=== PATIENT | female | born 1960 | race Caucasian/White ===

== ENCOUNTER 2017-09-04 19:18 | Observation (INO) ==
--- NOTE | 2017-09-04 19:52 | Emergency Department Note ---
Disposition Clinical Impression: Near syncope Syncope Qualifiers: Encounter type: initial encounter Disposition: Admitted As Inpatient Condition: Good Forms: ED Satisfaction Letter Time of Disposition: 22:00 General Adult HPI - General Chief complaint: ED Syncope Stated complaint: syncopal episode, diaphoretic, tingling to fingers Time Seen by Provider: 09/04/17 19:33 Source: patient Limitations: no limitations Nursing Notes Reviewed: Yes Vital Signs Reviewed: Yes - History of Present Illness HPI Narrative: 56-year-old female with no significant past medical history presents today with presyncopal episode 1 hour ago. Patient was eating dinner with family when she suddenly experienced left hand first and second digit tightness and lightheadedness. She felt like she was going to faint. Denies loss of consciousness or trauma to head. Does admit to nausea without vomiting. Denies recent illness. Denies chest pain, shortness of breath. Her lightheadedness and dizziness has self resolved. Currently asymptomatic. Denies tingling and numbness. Denies dizziness, lightheadedness with changes in position. Reports that this has not happened before. Denies history of stroke, CAD, palpitations. Her mother had history of breast cancer. Does admit to carpal tunnel of right hand with tendon release in the past. Pt Subjective Complaint: lightheadedness. Pain Scale: 0 - Related Data Allergies Allergy/AdvReac Type Severity Reaction Status Date / Time No Known Allergies Allergy Verified 02/21/15 08:03 All systems ED: reviewed and negative except as stated. Review of Systems: As Per HPI Constitutional: Reports: as per HPI Cardiovascular: Reports: as per HPI Respiratory: Reports: as per HPI Gastrointestinal: Reports: as per HPI Genitourinary: Reports: as per HPI Musculoskeletal: Reports: as per HPI Integumentary: Reports: as per HPI Neurological: Reports: as per HPI Endocrine: Reports: as per HPI Past Medical History - Past Medical History Medical history: Reports: no medical history Psychiatric history: Reports: no psych history - Social History Smoking Status: Never smoker Alcohol use: Reports: none Drug use: Reports: none Physical Exam - General Limitations: no limitations General appearance: alert, in no apparent distress - Head Head exam: atraumatic, normocephalic, normal inspection - Eye Eye exam: Present: normal appearance, PERRL, EOMI - Expanded Eye Exam Pupils: Left: reactive - ENT ENT exam: normal exam, normal oropharynx, mucous membranes moist - Expanded ENT Exam External ear exam: Present: normal external inspection Mouth exam: Present: normal external inspection Teeth exam: Present: normal inspection Throat exam: Present: normal inspection - Neck Neck exam: Present: normal inspection, full ROM, trachea midline - Chest Chest inspection: Present: normal inspection, symmetric chest wall rise - Respiratory Respiratory exam: Present: normal lung sounds bilaterally - Cardiovascular Cardiovascular exam: Present: regular rate, normal rhythm, normal heart sounds - Abdominal Exam Abdominal exam: Present: soft, Non-Tender. Absent: tenderness, distention, guarding, rebound, rigidity - Extremities Exam Extremities exam: Present: normal inspection, full ROM. Absent: tenderness, pedal edema - Expanded Upper Extremity Exam Shoulder exam: Present: normal inspection, full ROM Arm exam: Present: normal inspection, full ROM Elbow exam: Present: normal inspection, full ROM Forearm/Wrist exam: Present: normal inspection, full ROM Hand exam: Present: normal inspection, full ROM Vascular exam: Normal: capillary refill, radial pulse - Expanded Lower Extremity Exam Hip/Pelvis exam: Present: normal inspection, full ROM Upper leg exam: Present: normal inspection, full ROM Knee exam: Present: normal inspection, full ROM Lower leg exam: Present: normal inspection, full ROM Ankle exam: Present: normal inspection, full ROM Foot/toe exam: Present: normal inspection, full ROM Neurovascular/Tendon exam: Absent: motor deficit, sensory deficit, tendon deficit - Back Exam Back exam: Present: normal inspection, full ROM. Absent: tenderness - Neurological Exam Neurological exam: Present: alert, oriented X3 - Expanded Neurological Exam Patient oriented to: Present: person, place, time Coma Scale Eye Opening: Spontaneous Coma Scale Motor Response: Obeys Commands Coma Scale Verbal Response: Oriented Coma Scale Total: 15 - Psychiatric Psychiatric exam: Present: normal affect, normal mood - Skin Skin exam: Present: warm, dry, intact, normal color Course Course Narrative: Blood work is unremarkable, EKG unremarkable. Patient has no previous history of syncope, CAD. She does not have previous history of palpitations but currently does experience them. We will admit her for syncope workup due to no previous history of cardiac or neurologic deficits. Patient is informed and is agreeable to management plan. Pending hospitalization admission. - Consultations Consultation #1: Consulted Dr. Brown, admitting hospitalist. She has accepted admission. Vital Signs Temperature 97.9 F 09/04/17 19:26 Pulse Rate 77 09/04/17 19:26 Respiratory Rate 16 09/04/17 19:26 Blood Pressure 149/84 09/04/17 19:26 O2 Sat by Pulse Oximetry 100 09/04/17 19:26 Temperature 97.9 F 09/04/17 19:26 Pulse Rate 77 09/04/17 19:26 Respiratory Rate 16 09/04/17 19:26 Blood Pressure 149/84 09/04/17 19:26 O2 Sat by Pulse Oximetry 100 09/04/17 19:26 Oxygen Delivery Oxygen Delivery Room Air Medical Decision Making - Medical Records Medical records reviewed: Yes I reviewed the patient's medical records. - Lab Data Lab results reviewed: Yes I reviewed the patient's lab results. Result diagrams: 09/04/17 20:12 09/04/17 20:12 Lab Results 09/04/17 09/04/17 09/04/17 Range/Units 19:22 20:12 20:12 WBC 8.6 (4.3-11.1) K/mcL RBC 4.19 (3.82-4.97) M/mcL Hgb 13.0 (11.5-15.4) g/dL Hct 38.4 (35.3-44.9) % MCV 91.6 (83.0-100.0) fL MCH 31.0 (28.0-33.3) pg MCHC 33.9 (31.6-35.5) g/dL RDW 12.6 (11.5-14.5) % Plt Count 207 (140-400) K/mcL MPV 11.3 (9.4-12.4) fL Immature Gran % 0.4 (0-4) % Seg Neutrophils % 72.0 % Lymphocytes % 17.0 % Monocytes % 8.3 % Eosinophils % 1.8 % Basophils % 0.5 % Neutrophils # 6.2 (1.6-8.9) K/mcL Lymphocytes # 1.5 (0.6-4.6) K/mcL Monocytes # 0.7 (0.0-1.3) K/mcL Eosinophils # 0.2 (0.0-0.6) K/mcL Basophils # 0.0 (0.0-0.2) K/mcL Sodium 138 (136-145) mEq/L Potassium 3.9 (3.5-5.1) mEq/L Chloride 106 (98-107) mEq/L Carbon Dioxide 25 (23-29) mEq/L BUN 34 H (6-20) mg/dL Creatinine 1.09 (0.60-1.20) mg/dL Est GFR ( Amer) > 60 (> 60) Est GFR (Non-Af Amer) 52 L (> 60) BUN/Creatinine Ratio 31 H (6-26) Glucose 117 H (70-105) mg/dL Calculated Osmolality 295 (280-300) Calcium 9.5 (8.6-10.3) mg/dL Troponin I < 0.03 (< 0.04) ng/mL Urine Color Yellow (Yellow) Urine Clarity Clear (Clear) Urine pH 5.5 (5.0-8.0) pH Units Ur Specific [place] > 1.030 H (1.010-1.025) Urine Protein Negative (Neg-Trace) mg/dL Urine Glucose (UA) Normal (Normal) mg/dL Urine Ketones Negative (Negative) mg/dL Urine Blood Negative (Negative) Urine Nitrite Negative (Negative) Urine Bilirubin Negative (Negative) Urine Urobilinogen Normal (Normal) mg/dL Ur Leukocyte Esterase Moderate H (Negative) Urine Microscopic RBC 3-5 H (0-3) per hpf Urine Microscopic WBC 30-50 H (0-3) per hpf Ur Squamous Epith Cells Moderate H (None-Few) per lpf Urine Bacteria None Seen (None-Few) per hpf Hyaline Casts Few (None-Few) per lpf Ur Culture Indicated? YES A (NO) - Radiology Data Radiology results reviewed: Yes I reviewed the patient's radiology results. - EKG Data EKG #1 EKG attestation: Yes I reviewed and interpreted this EKG. EKG results narrative: Ventricular rate 81, BRIT was 57, QRS 77. Sinus rhythm. Normal EKG. EKG shows normal: sinus rhythm Rate: normal Rhythm: NSR [place]/QRS: normal When compared to previous EKG there are: no significant changes Interpretation: no acute changes, normal EKG Attestation Statement - Attestation Attestation: I, Bethel Love DO, examined this patient [id number] and my medical decision-making was reviewed with Isael Graham PGY-1, Resident Physician. I agree with the documented findings, disposition and treatment plan as described except to the extent set forth below. Please see my progress notes for details.
[2017-09-04 20:25] LABS: Bilirubin,Urine Negative (Negative); Blood,Urine Negative (Negative); Clarity,Urine Clear (Clear); Color,Urine Yellow (Yellow); Glucose,Urine (UA) Normal (Normal); Ketones,Urine Negative (Negative); Leukocyte Esterase,Urine Moderate (Negative); Nitrite,Urine Negative (Negative); PH,Urine 5.5 pH Units (5.0-8.0); Protein,Urine Negative (Neg-Trace); Specific Gravity,Urine > 1.030 (1.010-1.025); Urobilinogen,Urine Normal (Normal)
[2017-09-04 20:27] LABS: Bacteria,Urine None Seen per hpf (None-Few); Hyaline Casts,Urine Few per lpf (None-Few); Squamous Epithelial Cell,Urine Moderate per lpf (None-Few); WBC,Urine 30-50 per hpf (0-3)
[2017-09-04 20:29] LABS: Basophils % 0.5 %; Eosinophils # 0.2 K/mcL (0.0-0.6); Eosinophils % 1.8 %; Hematocrit 38.4 % (35.3-44.9); Immature Granulocytes % 0.4 % (0-4); Lymphocytes # 1.5 K/mcL (0.6-4.6); Mean Corpuscular HGB Conc 33.9 g/dL (31.6-35.5); Mean Corpuscular Volume 91.6 fL (83.0-100.0); Mean Platelet Volume 11.3 fL (9.4-12.4); Monocytes # 0.7 K/mcL (0.0-1.3); Monocytes % 8.3 %; Neutrophils # 6.2 K/mcL (1.6-8.9); Platelet Count 207 K/mcL (140-400); Red Blood Count 4.19 M/mcL (3.82-4.97); Red Cell Distribution Width 12.6 % (11.5-14.5)
[2017-09-04 20:50] LABS: BUN/Creatinine Ratio 31 (6-26); Blood Urea Nitrogen 34 mg/dL (6-20); Calcium 9.5 mg/dL (8.6-10.3); Carbon Dioxide 25 mEq/L (23-29); Chloride 106 mEq/L (98-107); Glucose 117 mg/dL (70-105); Osmolality,Calculated 295 (280-300); Potassium 3.9 mEq/L (3.5-5.1); Sodium 138 mEq/L (136-145); eGFR For African Americans > 60 (> 60); eGFR For Non-African Americans 52 (> 60)
[2017-09-04 20:51] LABS: Troponin I < 0.03 ng/mL (< 0.04)
--- NOTE | 2017-09-04 21:17 | Emergency Department Note ---
Disposition Clinical Impression: Near syncope, Palpitations Disposition: Admitted As Inpatient Condition: Good Forms: ED Satisfaction Letter Time of Disposition: 21:57 General Adult HPI - General Chief complaint: ED Syncope Stated complaint: syncopal episode, diaphoretic, tingling to fingers Time Seen by Provider: 09/04/17 19:33 Source: patient Limitations: no limitations - History of Present Illness Pain Scale: 0 - Related Data Allergies Allergy/AdvReac Type Severity Reaction Status Date / Time No Known Allergies Allergy Verified 02/21/15 08:03 Past Medical History - Past Medical History Medical history: Reports: no medical history Psychiatric history: Reports: no psych history - Social History Smoking Status: Never smoker Alcohol use: Reports: none Drug use: Reports: none Physical Exam - General Limitations: no limitations General appearance: alert, in no apparent distress Course Vital Signs Temperature 97.9 F 09/04/17 19:26 Pulse Rate 77 09/04/17 19:26 Respiratory Rate 16 09/04/17 19:26 Blood Pressure 149/84 09/04/17 19:26 O2 Sat by Pulse Oximetry 100 09/04/17 19:26 Temperature 97.9 F 09/04/17 19:26 Pulse Rate 77 09/04/17 19:26 Respiratory Rate 16 09/04/17 19:26 Blood Pressure 149/84 09/04/17 19:26 O2 Sat by Pulse Oximetry 100 09/04/17 19:26 Oxygen Delivery Oxygen Delivery Room Air Medical Decision Making - Lab Data Result diagrams: 09/04/17 20:12 09/04/17 20:12 Lab Results 09/04/17 09/04/17 09/04/17 Range/Units 19:22 20:12 20:12 WBC 8.6 (4.3-11.1) K/mcL RBC 4.19 (3.82-4.97) M/mcL Hgb 13.0 (11.5-15.4) g/dL Hct 38.4 (35.3-44.9) % MCV 91.6 (83.0-100.0) fL MCH 31.0 (28.0-33.3) pg MCHC 33.9 (31.6-35.5) g/dL RDW 12.6 (11.5-14.5) % Plt Count 207 (140-400) K/mcL MPV 11.3 (9.4-12.4) fL Immature Gran % 0.4 (0-4) % Seg Neutrophils % 72.0 % Lymphocytes % 17.0 % Monocytes % 8.3 % Eosinophils % 1.8 % Basophils % 0.5 % Neutrophils # 6.2 (1.6-8.9) K/mcL Lymphocytes # 1.5 (0.6-4.6) K/mcL Monocytes # 0.7 (0.0-1.3) K/mcL Eosinophils # 0.2 (0.0-0.6) K/mcL Basophils # 0.0 (0.0-0.2) K/mcL Sodium 138 (136-145) mEq/L Potassium 3.9 (3.5-5.1) mEq/L Chloride 106 (98-107) mEq/L Carbon Dioxide 25 (23-29) mEq/L BUN 34 H (6-20) mg/dL Creatinine 1.09 (0.60-1.20) mg/dL Est GFR ( Amer) > 60 (> 60) Est GFR (Non-Af Amer) 52 L (> 60) BUN/Creatinine Ratio 31 H (6-26) Glucose 117 H (70-105) mg/dL Calculated Osmolality 295 (280-300) Calcium 9.5 (8.6-10.3) mg/dL Troponin I < 0.03 (< 0.04) ng/mL TSH 4.388 (0.340-5.600) mcIU/mL Urine Color Yellow (Yellow) Urine Clarity Clear (Clear) Urine pH 5.5 (5.0-8.0) pH Units Ur Specific [place] > 1.030 H (1.010-1.025) Urine Protein Negative (Neg-Trace) mg/dL Urine Glucose (UA) Normal (Normal) mg/dL Urine Ketones Negative (Negative) mg/dL Urine Blood Negative (Negative) Urine Nitrite Negative (Negative) Urine Bilirubin Negative (Negative) Urine Urobilinogen Normal (Normal) mg/dL Ur Leukocyte Esterase Moderate H (Negative) Urine Microscopic RBC 3-5 H (0-3) per hpf Urine Microscopic WBC 30-50 H (0-3) per hpf Ur Squamous Epith Cells Moderate H (None-Few) per lpf Urine Bacteria None Seen (None-Few) per hpf Hyaline Casts Few (None-Few) per lpf Ur Culture Indicated? YES A (NO) Attestation Statement - Attestation Attestation: I, Bethel Love DO, examined this patient [id number] and my medical decision-making was reviewed with Isael Graham PGY-1, Resident Physician. I agree with the documented findings, disposition and treatment plan as described except to the extent set forth below. Please see my progress notes for details. 56-year-old female presents to the emergency room for evaluation of a near syncopal event here today. Patient has no other medical history and denies any changes in medications does not take any supplements. During the event today she had palpitations she felt very lightheaded she did not show up she did not have nausea vomiting or diarrhea. She denied any chest pain or shortness of breath. She did not completely pass out but she felt very unsteady and felt like she was going to pass out. She also had some clenching of the index and thumb of the left upper extremity that has currently resolved. She denies any history of cardiac disease or stroke. Family member has a history of strokes in the past but she has never had any issues with it prior to. She is currently going through menopause but denies any significant medication changes or illnesses with it. Currently she is resting comfortably in the bed she has no acute neurologic deficits noted on exam her head is atraumatic pupils are equal round reactive oropharynx is patent. Cranial nerves II through XII are grossly intact. She is alert she is oriented she follows commands appropriately. She has no cerebellar function deficits or issues this time. Sensation in the upper and lower extremities is symmetrical. Her lungs are clear heart is regular abdomen is soft nontender nondistended with no guarding no rigidity and no peritoneal symptoms at this time. EKG was unremarkable on initial triage presentation. CT imaging of the head chest x-ray labs including CBC chemistry troponin and thyroid function will be added on at this point. Patient will most likely require admission secondary to concern for near syncopal event of unknown etiology with a non-provoked presentation. Patient otherwise has no other medical issues her symptoms of this time. See detailed documentation of the physical exam, medical intervention, medical decision- making and disposition in the resident physician's note. No critical care pad the patient's treatment course at this time. 2124 Labs are unremarkable. Patient stable here. She is in no acute signs of decompensation or change in neurologic status. Admission process will be completed for near syncope with an unprovoked presentation this time. Patient family are comfortable with the plan. Admission process will be completed this time
[2017-09-04 21:52] LABS: Thyroid Stimulating Hormone 4.388 mcIU/mL (0.340-5.600)
[2017-09-04] MEDS ORDERED: Naloxone 0.4 MG/ML INJ IVP PRN (22:33)
--- NOTE | 2017-09-04 22:42 | Internal Med History&Physical ---
Date of Encounter: 09/04/17 Time of Encounter: 22:00 Internal Medicine - H&P: HPI Chief complaint: Near syncope Admitted From: Home Plans for Post Hospital Care: Home History of present illness: Ms. Griffith is a 56 year old female present to ER for near syncope. Patient is generally in good health without significant medical history, on no home medications. Patient said around 7 PM when she was eating dinner, she suddenly have tingling on left thumb and index finger, with sweating, dizziness, and almost fall. Patient denies loss of consciousness or fall. Patient denies palpitation, chest pain, body numbness or weakness, vision change, feeling of hungry, slurred speech, headache, or fever. Patient denies recent sick or diarrhea or dehydration. Patient denies dysuria, burning on urination, urgency or increased frequency of urination. The dizziness symptoms lasted about 20 minutes and resolved by itself. In the emergency room, CT head negative. EKG is unremarkable. Patient was admitted for further monitoring for near syncope. Past Med Surg Social Fam HX - Past Medical History Medical history: no medical history Psychiatric history: no psych history - Past Surgical History Additional surgical history: Carpal tunnel. trigger release - Social History Smoking Status: Never smoker Alcohol use: none Drug use: none - Family History Mother History Unknown: Yes Internal Medicine - H&P: Meds 3 Allergy/AdvReac Type Severity Reaction Status Date / Time No Known Allergies Allergy Verified 02/21/15 08:03 All Systems PM: A 10-system review of systems was performed and is negative for pertinent findings except as documented above in the HPI. - Constitutional Vitals: Temp Pulse Resp BP Pulse Ox 97.9 F 77 16 149/84 100 09/04/17 19:26 09/04/17 19:26 09/04/17 19:26 09/04/17 19:26 09/04/17 19:26 General appearance: Present: A&O X 3, pleasant, no acute distress, answers questions appropriately - Head Head exam: Present: atraumatic, normocephalic - Eye Eye exam: Present: PERRL, conjuntiva pink, sclera anicteric Pupils: Present: PERRL - Neck Neck exam general surgery: Present: supple, trachea midline. Absent: lymphadenopathy - Respiratory Respiratory exam: Present: CTAB. Absent: accessory muscle use, rales, rhonchi, wheezes - Cardiovascular Cardiovascular exam: Present: RRR, +S1, +S2. Absent: diastolic murmur, gallop, rubs, systolic murmur - GI/Abdominal GI/Abdominal exam: Present: normal bowel sounds, soft, no peritoneal signs. Absent: distended, tenderness - Extremities Exam Extremities exam: Present: warm, radial pulses palpable and symmetrical. Absent : calf tenderness, cyanotic, pedal edema - Neurological Exam Neurological exam: Present: CN II-XII intact, oriented X3, no focal deficits. Absent: pronater drift, facial droop, speech deficit - Skin Skin exam: Present: dry, intact Internal Med - H&P Results - Labs CBC & Chem 7: 09/04/17 20:12 09/04/17 20:12 - Assessment and plan (1) DVT prophylaxis Current Visit: Yes Status: Acute Assessment and plan: Patient is generally ambulates well and expect short hospital stay, will hold anticoagulation. (2) Near syncope Current Visit: Yes Status: Acute Assessment and plan: Etiology is undetermined. Need to rule out cardio/neuro etiology. - Place patient on continuous cardiac monitoring to rule out arrhythmia - Echocardiogram to rule out the valve disease, hypertrophic obstructive cardiomyopathy, or pulmonary hypertension. - Duplex carotid to rule out stenosis - Orthostatic vitals - Patient has mild elevated BUN, probably having mild dehydration, encourage patient to drink water. - UA shows possible UTI, however patient has no symptoms, no treatment indicated at this point. - Time Spent With Patient Total time spent is greater than 50% in coordination of care (as documented) at patient's floor/unit and/or counseling patient: 40 minutes Greater than 35 minutes
[2017-09-05 01:42] LABS: BUN/Creatinine Ratio 36 (6-26); Blood Urea Nitrogen 31 mg/dL (6-20); Calcium 9.4 mg/dL (8.6-10.3); Carbon Dioxide 23 mEq/L (23-29); Chloride 106 mEq/L (98-107); Chol/HDL Ratio 4.4 (0-4.9); Cholesterol 225 mg/dL (< 200); Glucose 139 mg/dL (70-105); HDL Cholesterol 51 mg/dL (40-59); LDL Cholesterol,Calculated 150 mg/dL (0-99); Osmolality,Calculated 293 (280-300); Phosphorous 4.3 mg/dL (2.7-4.5); Potassium 3.9 mEq/L (3.5-5.1); Sodium 137 mEq/L (136-145); Triglycerides 119 mg/dL (< 150); eGFR For African Americans > 60 (> 60); eGFR For Non-African Americans > 60 (> 60)
[2017-09-05] MEDS ORDERED: cephALEXin 500 MG CAPSULE PO SCH (09:00)
[2017-09-05 10:49] VITALS: BP 129/87
--- NOTE | 2017-09-05 13:17 | Discharge Summary ---
Orders not resulted at time of discharge: Pending orders 09/05/17 00:49 Hgb A1C AM 0400 Date of Encounter: 09/05/17 Time of Encounter: 13:14 - Discharge Diagnosis (1) Near syncope Priority: Primary Status: Resolved Assessment and Plan: likely from dehydration, resolved (2) Dehydration Priority: Secondary Status: Acute Assessment and Plan: resolved (3) UTI (urinary tract infection) Priority: Secondary Status: Acute Assessment and Plan: dischareg on keflex Qualifiers: Urinary tract infection type: acute cystitis Hematuria presence: without hematuria Qualified Code(s): N30.00 - Acute cystitis without hematuria Hospital course: Ms. Griffith is a 56 year old female present to ER for near syncope. Patient is generally in good health without significant medical history, on no home medications. Patient said around 7 PM when she was eating dinner, she suddenly have tingling on left thumb and index finger, with sweating, dizziness, and almost fall. Patient denies loss of consciousness or fall. Patient denies palpitation, chest pain, body numbness or weakness, vision change, feeling of hungry, slurred speech, headache, or fever. Patient denies recent sick or diarrhea or dehydration. Patient denies dysuria, burning on urination, urgency or increased frequency of urination. The dizziness symptoms lasted about 20 minutes and resolved by itself. In the emergency room, CT head negative. EKG is unremarkable. Patient was admitted for further monitoring for near syncope. She has normal EKG, negative Tele, normal TTE and carotid doppler. she does have UTI discharged on keflex. lsyncope is likley form dehydration. patient is instrcuted to follow up PCP. Discharge discussed with: patient Time spent discussing smoking cessation with patient: 3 to 10 minutes - Time Spent with Patient Total time spent providing and/or coordinating discharge services: Less than 30 minutes - Discharge Medications Prescriptions: cephALEXin [Keflex] 500 mg PO QID 3 Days #12 capsule Home Medications: cephALEXin [Keflex] 500 mg PO QID 3 Days #12 capsule 09/05/17 [Rx] Allergies/Adverse Reactions: 3 Allergy/AdvReac Type Severity Reaction Status Date / Time No Known Allergies Allergy Verified 02/21/15 08:03 Date of admission: 09/04/17 22:19 Primary care physician: Lemuel Navarro CNP - Constitutional Vitals: Temp Pulse Resp BP Pulse Ox 98.1 F 72 15 129/87 98 09/05/17 10:46 09/05/17 10:46 09/05/17 10:46 09/05/17 10:46 09/05/17 10:46 General appearance: Present: A&O X 3, pleasant, no acute distress, answers questions appropriately Exam: CONSTITUTIONAL: patient appears as an age appropriate female in no acute distress. EYES Clear sclerae, bilateral pupils are equal, reactive to light. EMOI. RESPIRATORY: No accessory muscle use, bilateral clear to auscultation, no wheezing, no crackles/rales. CARDIOVASCULAR: Regular heart rate, normal S1 and S2, no murmurs GASTROINTESTINAL: bowel sounds present, soft, no tenderness. MUSCULOSKELETAL: Joints in normal range of motion, no clubbing, no edema, no cyanosis. Bilateral peripheral pulses 2+. NEUROLOGIC: CN II to XII are grossly intact, no focal neurological deficit. - Patient Status Disposition: Home, Self-Care Functional capacity at discharge: independent ambulation Overall status at discharge: patient is back to baseline - Discharge Instructions Follow Up With: Lemuel Navarro, [employer] [Primary Care Provider] - - Diet and Activity Diet: advance to your usual diet
[2017-09-06 23:00] LABS: Estimated Average Glucose 120 mg/dl; Hemoglobin A1C 5.8 %
--- NOTE | 2017-09-07 16:49 | Electrocardiograph Report ---
[address] [address] Test Date: 2017-09-04 Pat Name: Pippa Griffith Department: 102 Room: 3A Gender: F Slip Filler: : 1960 Requested By: Kam Viramontes Order Number: [id number] Reading MD: Saskia Mock Measurements Intervals [place] Rate: 81 P: 56 DE: 157 QRS: 36 QRSD: 77 T: 36 QT: 342 QTc: 379 Interpretive Statements SINUS RHYTHM Electronically Signed On 09-07-2017 16:48:02 EDT by Saskia Mock
== END 2017-09-05 14:12 | disposition home or self-care (01) ==
LOC: EMEROO 19:18 → 3ANU 19:18 → SUATTDRO 22:19 → 3ANU 23:28
PROVIDERS: ADMIT Internal Medicine; ATTEND Hospitalist

== ENCOUNTER 2020-10-29 10:27 | Observation (INO) ==
[2020-10-29] MEDS ORDERED: *HR* OxyCODONE/APAP 5/325 TABLET PO PRN (12:48)
[2020-10-29] MEDS ORDERED: Ketorolac 30 MG/ML VIAL IVP PRN (12:48)
[2020-10-29] MEDS ORDERED: Ondansetron 4 MG/2 ML VIAL IVP PRN ×2 (12:48→18:40)
[2020-10-29] MEDS ORDERED: Piperacillin/Tazobactam 3.375 GM in 0.9 % Sodium Chloride Mini Bag 100 ML IVPB SCH (13:00)
[2020-10-29] MEDS ORDERED: *HR* Propofol 200 MG/20 ML VIAL IVP ONE (16:38)
[2020-10-29] MEDS ORDERED: Ondansetron 4 MG/2 ML VIAL ONE (16:39)
[2020-10-29] MEDS ORDERED: *HR* Rocuronium Bromide 50 MG/5 ML VIAL ONE (16:39)
[2020-10-29] MEDS ORDERED: Lidocaine -MPF 2% 2 ML VIAL ONE (16:39)
[2020-10-29] MEDS ORDERED: Lidocaine HCL 4 ML Topical Solution (Laryng-O-Jet Kit Sterile Pak) TP ONE (16:39)
[2020-10-29] MEDS ORDERED: *HR* FentaNYL (PF) 100 MCG/2 ML VIAL ONE (16:41)
[2020-10-29] MEDS ORDERED: *HR* Meperidine 25 MG/ML SYRINGE IVP PRN ×2 (16:48→18:40)
[2020-10-29] MEDS ORDERED: Promethazine 6.25 MG in Water for inj. (sterile) 20 ML IVPB PRN ×2 (16:48→18:40)
[2020-10-29] MEDS ORDERED: *HR* HYDROmorphone PF 0.5 MG/0.5 ML SYRINGE IVP PRN ×2 (16:48→18:40)
[2020-10-29] MEDS ORDERED: *HR* HYDROMORPHONE 2 MG/ML VIAL ONE (17:15)
[2020-10-29] MEDS ORDERED: Sugammadex Sodium 200 MG/2 ML VIAL IV ONE (17:27)
[2020-10-29] MEDS: Piperacillin/Tazobactam 3.375 GM in 0.9 % Sodium Chloride Mini Bag 100 ML IVPB SCH (20:16)
[2020-10-29] MEDS: *HR* OxyCODONE/APAP 5/325 TABLET PO PRN (22:12)
[2020-10-30 04:46] LABS: Basophils % 0.1 %; Hematocrit 34.5 % (35.3-44.9); Hemoglobin 11.5 g/dL (11.5-15.4); Immature Granulocytes % 0.3 % (0-4); Lymphocytes # 0.2 K/mcL (0.6-4.6); Lymphocytes % 2.2 %; Mean Corpuscular HGB Conc 33.3 g/dL (31.6-35.5); Mean Corpuscular Hemoglobin 30.7 pg (28.0-33.3); Mean Corpuscular Volume 92.2 fL (83.0-100.0); Mean Platelet Volume 11.1 fL (9.4-12.4); Monocytes % 9.3 %; Neutrophils # 9.8 K/mcL (1.6-8.9); Platelet Count 175 K/mcL (140-400); Red Blood Count 3.74 M/mcL (3.82-4.97); Red Cell Distribution Width 12.7 % (11.5-14.5); Segmented Neutrophils % 88.1 %; White Blood Count 11.1 K/mcL (4.3-11.1)
[2020-10-30] MEDS: Piperacillin/Tazobactam 3.375 GM in 0.9 % Sodium Chloride Mini Bag 100 ML IVPB SCH ×3 (05:16→19:40)
[2020-10-30] MEDS: Ketorolac 30 MG/ML VIAL IVP PRN ×2 (05:16→13:36)
[2020-10-30] MEDS: *HR* OxyCODONE/APAP 5/325 TABLET PO PRN (19:39)
[2020-10-31 03:51] VITALS: PULSE 77
[2020-10-31] MEDS: *HR* OxyCODONE/APAP 5/325 TABLET PO PRN (03:55)
[2020-10-31] MEDS: Piperacillin/Tazobactam 3.375 GM in 0.9 % Sodium Chloride Mini Bag 100 ML IVPB SCH (03:56)
[2020-10-31 06:47] VITALS: BP 120/74; TEMP 98; O2SAT 95
[2020-10-31] MEDS ORDERED: Ibuprofen 800 MG TABLET PO ONE (08:54)
== END 2020-10-31 10:38 | disposition home or self-care (01) ==
LOC: 3BNU
PROVIDERS: ADMIT Surgery; ATTEND Surgery